=== PATIENT | male | born 1950 | race Caucasian/White ===

== ENCOUNTER → 2016-06-30 | Outpatient (CLI) | payer MEDICARE ==
[2015-04-21 17:30] VITALS: BP 123/69
[~2016-06-30] MED LIST: ALBU2.5V14 NEB; CONTRAST GIVEN MC PRN; FLUT1DIS3 IH; IOHEXOL 240 MG/ML 50ML VIAL. IV ONE; IOHEXOL 300 MG/ML 75 ML VIAL IV ONE; PROAIR HFA8.5 GM IH
[2016-06-30 09:09] LABS: CREATININE 0.8 mg/dL (0.7-1.3)
--- NOTE | 2016-06-30 10:47 | RAD ---
Indication abdominal pain and bloating. Duration 2 months. Axial images through the abdomen and pelvis were obtained. Both oral and IV contrast were administered. 75 cc of Omnipaque 300 was administered intravenously. No prior imaging of the abdomen or pelvis is available. Imaging of the lung bases demonstrates moderately extensive pleural calcification suggesting prior asbestos exposure. There is some parenchymal scarring at the lung bases. Acute finding at either lung base is not seen. There is a 2 to 3 mm parenchymal nodule in the right lower lobe, image 10 series 2. Follow-up imaging along the lines of the Fleischner criteria should be considered. The liver and spleen appear unremarkable and the gallbladder appears grossly normal. No pancreatic abnormality is seen. No adrenal or renal anomalies are seen. An acute finding in the abdomen is not apparent. In the pelvis no focal mass or inflammatory process is seen. No acute finding is apparent. Postoperative changes are noted. There are some degenerative changes in the lumbar spine predominantly centered at L5-S1 IMPRESSION: No acute finding seen in the abdomen or pelvis. Moderately extensive pleural calcification suggesting prior asbestos exposure. 3 mm pulmonary nodule right lower lobe. Follow-up imaging along the lines of the Fleischner criteria should be considered. Nodules detected incidentally at non-screening CT Nodule size (mm) less than or equal to 4 Low Risk patients- no follow-up needed High Risk patients- follow-up at 12 months and if no change, no further imaging needed. Nodule size > 4-6 mm Low risk patients- follow- up at 12 months and if no change, no further imaging needed High risk patients- initial follow-up CT at 6-12 months and then at 18-24 months if no change. Nodule Size > 6-8 mm Low risk patients- initial follow-up CT at 6-12 months and then at 18-24 months if no change. High risk patients- initial follow- up CT at 3-6 months and then at 9-12 months if no change, Nodule Size >8 mm Either low or high risk patients: Follow-up CT at around 3, 9 and 24 months Dynamic contrast [address], PET, and/or biopsy Note: newly detected indeterminate nodule in person 35 years of age or older. Low risk patients- minimal or absent history of smoking and/or other known risk factors. High risk patients- history of smoking or of other known risk factors. PQRS Compliance Statement: One or more of the following individualized dose reduction techniques were utilized for this examination: 1. Automated exposure control 2. Adjustment of the mA and/or kV according to patient size 3. Use of iterative reconstruction technique
== END | disposition home or self-care (01) ==
LOC: CT 08:43
PROVIDERS: ATTEND Physician Assistant
DX: R10.9 Unspecified abdominal pain (principal); R14.0 Abdominal distension (gaseous)
CPT/HCPCS: 36415; 74177; 82565; Q9966; Q9967

== ENCOUNTER → 2016-07-22 | Day surgery (SDC) | payer MEDICARE ==
[~2016-07-22] MED LIST changes: -CONTRAST GIVEN MC PRN; -IOHEXOL 240 MG/ML 50ML VIAL. IV ONE; -IOHEXOL 300 MG/ML 75 ML VIAL IV ONE; +IV RINGERS,LACTATED 1000ML 1,000 ML IV SCH; +ONDA4TAB10 SL; +PROPOFOL 20 ML IV ONE
[2016-07-22 08:13] VITALS: BP 169/86
--- NOTE | 2016-07-23 11:17 | PATHOLOGY ---
PATHOLOGY REPORT * * * * * * * * FINAL DIAGNOSIS: Colon biopsy, sigmoid polyp: - Tubular adenoma. COMMENT: There is no high-grade dysplasia or evidence of malignancy. (ANGELM:; d/t: 07/23/16) REPORT ELECTRONICALLY SIGNED BY: Jimmy Obrien M.D. DATE/TIME: 07/23/2016 11:16 * * * * * * * * GROSS PATHOLOGY: Received in formalin labeled "Pipe Santacruz, sigmoid polyp," is a segment of christianson soft tissue measuring 0.4 cm in maximum dimension. The specimen is submitted entirely in cassette A1. (MLG; 07/22/16) INITIAL CPT CODE(S): A; 50652 Professional services performed [place] [facility] [place] [address] Technical services performed by [facility] at [address] [place] [address], [facility] [address] [address]. SPECIMEN(S) RECEIVED: A.Sigmoid polyp CLINICAL HISTORY: Abdominal fullness PATIENT: PIPE SANTACRUZ /AGE: 8 1950 (Age: 65) PATIENT #: [id number] ALT CASE #: SPECIMEN COLLECTION DATE: 07/22/2016 SPECIMEN RECEIVED DATE: 07/22/2016 [facility] - [address] [place] [address] - PHONE: [phone] * * * END OF REPORT * * *
== END | disposition home or self-care (01) ==
LOC: ENDOS 06:53
PROVIDERS: ATTEND Internal Medicine Gastroenterology
DX: Z12.11 Encounter for screening for malignant neoplasm of colon (principal); D12.5 Benign neoplasm of sigmoid colon; K64.0 First degree hemorrhoids; K29.50 Unspecified chronic gastritis without bleeding; M19.90 Unspecified osteoarthritis, unspecified site; J44.9 Chronic obstructive pulmonary disease, unspecified; I10 Essential (primary) hypertension; K44.9 Diaphragmatic hernia without obstruction or gangrene; K21.9 Gastro-esophageal reflux disease without esophagitis; Z72.89 Other problems related to lifestyle; F17.210 Nicotine dependence, cigarettes, uncomplicated; Z86.69 Personal history of other diseases of the nervous system and sense organs; F41.9 Anxiety disorder, unspecified; Z88.3 Allergy status to other anti-infective agents
CPT/HCPCS: 43235; 45385; 88305; J2704

== ENCOUNTER → 2016-07-23 | Outpatient (CLI) | payer MEDICARE ==
[2015-04-21 17:30] VITALS: BP 123/69
[~2016-07-23] MED LIST changes: +IOHEXOL 300 MG/ML 75 ML VIAL IV ONE; -IV RINGERS,LACTATED 1000ML 1,000 ML IV SCH; -PROPOFOL 20 ML IV ONE
--- NOTE | 2016-07-23 09:50 | RAD ---
CT of the chest with contrast, 07/23/2016: History: Pulmonary nodules Multidetector CT imaging was performed following an IV bolus injection of iodinated contrast material. Multiplanar reconstructions were produced. No previous chest CT is available for comparison purposes. There are moderate emphysematous changes in the lungs. There are scattered linear opacities compatible with scars. There are pleural/parenchymal opacities in the apices, most prominent on the right. There is mild associated traction bronchiectasis in the right apex. These findings also suggests scarring. There is a calcified granuloma in the right middle lobe. A tiny nodular opacity seen in the right base and the 06/30/2016 study is no longer visible. No pulmonary mass is evident. There are scattered calcific pleural plaques bilaterally. The appearance suggests previous asbestos exposure. No pleural fluid is evident. There is moderate calcific plaquing of the thoracic aorta without evidence of aneurysm. Minimal coronary artery calcifications are noted. There are calcified mediastinal and hilar lymph nodes compatible with old granulomatous disease. No mediastinal or hilar adenopathy is evident. IMPRESSION: 1. Emphysema with scattered bilateral pleural-parenchymal opacities, most prominent in the pulmonary apices, compatible with scarring. CT follow-up is suggested to establish stability. 2. 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 3. Old healed granulomatous disease in the chest. 4. Aortic atherosclerosis with minimal coronary artery calcifications. PQRS Compliance Statement: One or more of the following individualized dose reduction techniques were utilized for this examination: 1. Automated exposure control 2. Adjustment of the mA and/or kV according to patient size 3. Use of iterative reconstruction technique
== END | disposition home or self-care (01) ==
LOC: CT 08:32
PROVIDERS: ATTEND Family Medicine
DX: J43.9 Emphysema, unspecified (principal); I70.0 Atherosclerosis of aorta; Z77.090 Contact with and (suspected) exposure to asbestos
CPT/HCPCS: 71260; Q9967

== ENCOUNTER → 2016-08-12 | Day surgery (SDC) | payer MEDICARE ==
[~2016-08-12] MED LIST changes: +ALBUTEROL SULFATE 2.5 MG/3 ML NEBU. IH ONE; +ALBUTEROL SULFATE 2.5 MG/3 ML NEBU. NEB ONE; +ALBUTEROL SULFATE 2.5 MG/3 ML NEBU. ONE; +HYDROmorphone 2 MG/ML VIAL IV PRN; -IOHEXOL 300 MG/ML 75 ML VIAL IV ONE; +IV RINGERS,LACTATED 1000ML 1,000 ML IV SCH; +LIDOCAINE 1% 1 ML SYRINGE. ID PRN; +MORPHINE SULFATE 2 MG/ML DISP.SYRIN. IV PRN; +ONDANSETRON PF 4 MG/2 ML VIAL. IV PRN; +PROCHLORPERAZINE 10 MG/2 ML VIAL. IV PRN; +PROPOFOL 20 ML IV ONE; +fentaNYL PF VIAL 100 MCG/2 ML VIAL IV PRN
[2016-08-12 14:46] VITALS: BP 139/87
--- NOTE | 2016-08-13 15:59 | PATHOLOGY ---
CYTOPATHOLOGY REPORT CLINICAL HISTORY: Chronic cough. SPECIMEN(S) RECEIVED: A.Bronchoalveolar lavage, RUL B.Bronchoalveolar lavage, NICHOLAS FINAL DIAGNOSIS: A. Right upper lobe bronchoalveolar lavage, ThinPrep: - No malignant cells identified. - Focally reactive bronchial epithelial cells and few squamous epithelial cells and pulmonary macrophages identified within a background of marked acute inflammation. B. Left upper lobe bronchoalveolar lavage, ThinPrep: - No malignant cells identified. - Focally reactive bronchial epithelial cells, squamous epithelial cells, and pulmonary macrophages identified within a background of marked acute inflammation. (JPM:mgr; 08/13/2016) PATHOLOGIST: Jimmy Obrien M.D. REPORT ELECTRONICALLY SIGNED BY: Jimmy Obrien M.D. DATE/TIME: 08/13/2016 15:58 GROSS PATHOLOGY: A. Bronchoalveolar lavage, RUL: The specimen is submitted unfixed, labeled "Pipe Santacruz". Received by the Cytology Department is 5 mL of cloudy white fluid. One ThinPrep slide was prepared. B. Bronchoalveolar lavage, NICHOLAS: The specimen is submitted unfixed, labeled "Pipe Santacruz". Received by the Cytology Department is 5 mL of cloudy light pink fluid. One ThinPrep slide was prepared. (clt 08.12.2016) PROPERTY OFFICER(S): BROCK Yuan([facility]) INITIAL CPT CODE(S): A; 15338 B; 95192 Professional services performed [place] [place] [address] Technical services performed by [facility] at [address] [place] [address], [facility] [address] [address]. PATIENT: PIPE SANTACRUZ /AGE: 8 1950 (Age: 65) SEX: M PATIENT #: [id number] ALT CASE #: SPECIMEN COLLECTION DATE: 08/12/2016 SPECIMEN RECEIVED DATE: 08/12/[address] [facility] [address] [place] [address], [address] [place] [address] PHONE: [phone] DIRECTOR: Dain Cannon M.D. * * * END OF REPORT * * *
--- NOTE | 2016-08-31 13:36 | PDOC4 ---
PROCEDURE Procedure [id number] LEANNA SIDDIQUI MD Aug 31, 2016 13:36
--- NOTE | 2016-08-31 18:29 | OP ---
DATE OF SURGERY: 08/12/2016 ATTENDING PHYSICIAN: Hamzah Adamson M.D. PROCEDURES: Bronchoscopy, bronchoalveolar lavage of left upper lobe and right upper lobe. INDICATIONS: The patient presented with abnormal CT of the chest revealing bilateral infiltrates along with chronic cough. Risks, benefits, and alternatives reviewed with patient. He consented. DESCRIPTION OF PROCEDURE: Timeout was performed prior to the procedure. Vital signs and O2 saturation were maintained within normal limits throughout the procedure. The bronchoscope was passed through the right naris. The vocal cords were identified moving bilaterally without any dysfunction. Vocal cords were then anesthetized with a total of 5 mL of 4% lidocaine. The bronchoscope was passed through the vocal cords into the proximal trachea, which was normal. The distal trachea was likewise normal. The right and left segments and the subsegments were all visualized. There were no endobronchial lesions. The scope was wedged into the right upper lobe segments. A bronchoalveolar lavage was performed. The scope was then wedged into the left upper lobe subsegment and a bronchoalveolar lavage was likewise performed. FINDINGS: 1. No endobronchial lesion. 2. Normal vocal cords. PLAN: We will await the BAL results. The patient tolerated the procedure well with no immediate complications. LEANNA SIDDIQUI MD DR: BLAYNE/jose francisco JOB#: [id number] / [id number]
== END | disposition home or self-care (01) ==
LOC: SURG 12:44
PROVIDERS: ATTEND Internal Medicine Pulmonary Disease
DX: R91.8 Other nonspecific abnormal finding of lung field (principal); J44.9 Chronic obstructive pulmonary disease, unspecified; I10 Essential (primary) hypertension; M19.90 Unspecified osteoarthritis, unspecified site; F17.200 Nicotine dependence, unspecified, uncomplicated; Z86.69 Personal history of other diseases of the nervous system and sense organs; Z87.39 Personal history of other diseases of the musculoskeletal system and connective tissue; Z91.041 Radiographic dye allergy status
CPT/HCPCS: 31624; 87070; 87102; 87116; 87205; 88112; 94640; J2704; J7613; 31622

== ENCOUNTER → 2016-08-13 | Outpatient (CLI) | payer MEDICARE ==
[2016-08-12 14:46] VITALS: BP 139/87
[~2016-08-13] MED LIST changes: -ALBUTEROL SULFATE 2.5 MG/3 ML NEBU. IH ONE; -ALBUTEROL SULFATE 2.5 MG/3 ML NEBU. NEB ONE; -ALBUTEROL SULFATE 2.5 MG/3 ML NEBU. ONE; -HYDROmorphone 2 MG/ML VIAL IV PRN; -IV RINGERS,LACTATED 1000ML 1,000 ML IV SCH; -LIDOCAINE 1% 1 ML SYRINGE. ID PRN; -MORPHINE SULFATE 2 MG/ML DISP.SYRIN. IV PRN; -ONDANSETRON PF 4 MG/2 ML VIAL. IV PRN; -PROCHLORPERAZINE 10 MG/2 ML VIAL. IV PRN; -PROPOFOL 20 ML IV ONE; -fentaNYL PF VIAL 100 MCG/2 ML VIAL IV PRN
--- NOTE | 2016-08-17 13:08 | PDOC4 ---
PROCEDURE Procedure Mr. Santacruz underwent full PFTs at [facility] on 08/13/16. patients FVC was 2.8 which is 63% predicted. Patient's FEV1 was 0.90 which is 26% predicted. Patient's FEV1 FEC ratio is severely reduced. There was mild response to bronchodilators with 12% improvement in FVC and 11% improvement in FEV1. Patient's lung volumes showed a total lung capacity of 166% predicted and residual volume of 346% predicted. Patient's diffusion capacity was 54% predicted impression 1. Severe obstructive airway disease 2. Good response to bronchodilators. 3. Lung volumes consistent with air trapping and hyperinflation. 4. Moderately reduced diffusion capacity. JESSE NIXON MD Aug 17, 2016 13:08
== END | disposition home or self-care (01) ==
LOC: PF 10:43
PROVIDERS: ATTEND Internal Medicine Pulmonary Disease
DX: R05 Cough (principal)
CPT/HCPCS: 94060; 94729

== ENCOUNTER 2016-08-25 00:48 | Inpatient (IN) | payer MEDICARE ==
[~2016-08-25] VITALS: Ht 180.3 cm; Wt 66.7 kg
[2016-08-25 01:11] LABS: BASO # 0.1 x10^3/uL (0.0-0.2); BASO % 1 % (0-3); EOS % 5 % (0-3); HEMATOCRIT 43.1 % (39.0-53.0); HEMOGLOBIN 14.5 g/dL (13.0-17.5); LYMPH # 1.4 x10^3/uL (1.0-4.8); LYMPH % 18 % (24-48); MEAN CORPUSCULAR HEMOGLOBIN 31 pg (25-35); MEAN CORPUSCULAR HGB CONC 34 g/dL (31-37); MEAN CORPUSCULAR VOLUME 92 fL (79-100); MONO % 8 % (0-9); NEUT % 69 % (31-73); PLATELET COUNT 223 x10^3/uL (140-400); RED BLOOD COUNT 4.69 x10^6/uL (4.30-5.70); RED CELL DISTRIBUTION WIDTH 14.2 % (11.5-14.5)
[2016-08-25] MEDS ORDERED: IPRATROPIUM BROMIDE 0.5 MG/2.5 ML NEBU. NEB ONE (01:15)
[2016-08-25] MEDS ORDERED: ALBUTEROL SULFATE 2.5 MG/3 ML NEBU. CONT NEB ONE (01:15)
[2016-08-25] MEDS ORDERED: methylPREDNISolone SOD SUCC PF 125 MG/2 ML VIAL. IV ONE (01:15)
--- NOTE | 2016-08-25 01:23 | ED.ADGEN ---
Past Medical History Past Medical History: COPD, High Cholesterol, Other Additional Past Medical Histor: bowel obstruction Past Surgical History: Colectomy Alcohol Use: Heavy Additional Information: drinks 3 x beers daily per pt Drug Use: None Adult General Chief Complaint Chief Complaint: SHORTNESS OF BREATH HPI HPI Patient is a 65 year old man, history of COPD, for which he uses nebulizer treatments, started on antibiotics from his primary care provider 2 days ago for a cough productive green sputum, who presents to the emergency department respiratory failure. Patient states he used 3 neb treatments in a half an hour home without any improvement in the shortness of breath, vomiting he and his come to the ED for additional evaluation. Patient denies any chest pain, any nausea or vomiting, any fevers or chills. He states that he does not use oxygen at home, oxygen saturation upon arrival to the emergency department is 83 % on room air. Patient placed on nasal cannula at 4 L, oxygen saturation is now in the mid 90s. Denies any swelling extremities, any history of congestive heart failure heart issues, no recent travel or surgery, history of DVT or PE. States he has been compliant with all medications. His primary care provider is Dr. Adamson. Review of Systems Review of Systems Constitutional: Denies fever or chills. [] Eyes: Denies change in visual acuity. [] HENT: Denies nasal congestion or sore throat. [] Respiratory: Off productive of green sputum, worsening shortness of breath over the past several days.] Cardiovascular: Denies chest pain or edema. [] GI: Denies abdominal pain, nausea, vomiting, bloody stools or diarrhea. [] : Denies dysuria. [] Musculoskeletal: Denies back pain or joint pain. [] Integument: Denies rash. [] Neurologic: Denies headache, focal weakness or sensory changes. [] Endocrine: Denies polyuria or polydipsia. [] Lymphatic: Denies swollen glands. [] Psychiatric: Denies depression or anxiety. [] Current Medications Current Medications Current Medications Medications (Trade) Dose Ordered Sig/Terri Start Time Stop Time Status Last Admin Dose Admin Albuterol Sulfate (Ventolin Neb Soln) 10 mg 1X ONCE 08/25/16 01:15 08/25/16 01:16 DC Ipratropium Agate (Atrovent) 1.5 mg 1X ONCE 7/18/17 01:15 08/25/16 01:16 DC Methylprednisolone Sodium Succinate (SOLU-Medrol 125MG VIAL) 125 mg 1X ONCE 08/25/16 01:15 08/25/16 01:16 DC 08/25/16 01:51 125 MG Allergies Allergies Allergies Coded Allergies Type Severity Reaction Last Updated Verified povidone-iodine Allergy Intermediate 08/12/16 Yes Physical Exam Physical Exam Constitutional: Well developed, well nourished, moderate respiratory distress, ill in appearance. [] HENT: Normocephalic, atraumatic, bilateral external ears normal, oropharynx moist, no oral exudates, nose normal. [] Eyes: PERRLA, EOMI, conjunctiva normal, no discharge. [] Neck: Normal range of motion, no tenderness, supple, no stridor. [] Cardiovascular:Heart rate regular rhythm, no murmur, S1, S2, no rubs or gallops. [] Lungs & Thorax: Patient with coarse wheezing noted throughout all lung rehman. No chest wall crepitus or tenderness. [] Abdomen: Bowel sounds normal, soft, no tenderness, no rebound, rigidity, no guarding, no masses, no pulsatile masses. [] Skin: Warm, dry, no erythema, no rash. [] Back: No tenderness, no CVA tenderness. [] Extremities: No tenderness, no cyanosis, no clubbing, ROM intact, no edema. Negative Homans sign. [] Neurologic: Alert and oriented X 3, normal motor function, normal sensory function, no focal deficits noted. [] Psychologic: Affect normal, judgement normal, mood normal. [] Current Patient Data Vital Signs Vital Signs Date Time Temp Pulse Resp B/P (MAP) Pulse Ox O2 Delivery O2 Flow Rate FiO2 08/25/16 01:20 96 Nasal Cannula 4.0 08/25/16 00:50 97.8 124 28 156/106 (123) 97.8 Lab Values Laboratory Tests Test 08/25/16 01:01 White Blood Count 8.0 x10^3/uL (4.0-11.0) Red Blood Count 4.69 x10^6/uL (4.30-5.70) Hemoglobin 14.5 g/dL (13.0-17.5) Hematocrit 43.1 % (39.0-53.0) Mean Corpuscular Volume 92 fL (79-100) Mean Corpuscular Hemoglobin 31 pg (25-35) Mean Corpuscular Hemoglobin Concent 34 g/dL (31-37) Red Cell Distribution Width 14.2 % (11.5-14.5) Platelet Count 223 x10^3/uL (140-400) Neutrophils (%) (Auto) 69 % (31-73) Lymphocytes (%) (Auto) 18 % (24-48) L Monocytes (%) (Auto) 8 % (0-9) Eosinophils (%) (Auto) 5 % (0-3) H Basophils (%) (Auto) 1 % (0-3) Neutrophils # (Auto) 5.5 x10^3uL (1.8-7.7) Lymphocytes # (Auto) 1.4 x10^3/uL (1.0-4.8) Monocytes # (Auto) 0.6 x10^3/uL (0.0-1.1) Eosinophils # (Auto) 0.4 x10^3/uL (0.0-0.7) Basophils # (Auto) 0.1 x10^3/uL (0.0-0.2) Sodium Level 137 mmol/L (136-145) Potassium Level 4.8 mmol/L (3.5-5.1) Chloride Level 100 mmol/L (98-107) Carbon Dioxide Level 31 mmol/L (21-32) Anion Gap 6 (6-14) Blood Urea Nitrogen 16 mg/dL (8-26) Creatinine 1.0 mg/dL (0.7-1.3) Estimated GFR (Cockcroft-Gault) 75.0 BUN/Creatinine Ratio 16 (6-20) Glucose Level 105 mg/dL (70-99) H Calcium Level 9.3 mg/dL (8.5-10.1) Total Bilirubin 0.2 mg/dL (0.2-1.0) Aspartate Amino Transferase (AST) 20 U/L (15-37) Alanine Aminotransferase (ALT) 19 U/L (16-63) Alkaline Phosphatase 83 U/L (46-116) Troponin I Quantitative < 0.017 ng/mL (0.000-0.055) NA-Bql-C-Type Natriuretic Peptide 132 pg/mL (0-124) H Total Protein 7.6 g/dL (6.4-8.2) Albumin 3.5 g/dL (3.4-5.0) Albumin/Globulin Ratio 0.9 (1.0-1.7) L Laboratory Tests 08/25/16 01:01 Laboratory Tests 08/25/16 01:01 EKG EKG EC: Sinus tachycardia, heart rate 115 beats minute, upright axis, QTC of 428, MI 166, QRS of 78, patient with left axis deviation, evidence of left ventricular hypertrophy, with contour normality is noted in the lateral leads, no ST depressions noted, 1 mm of elevation in V3 and V4, abnormal ECG, does not meet STEMI criteria. As interpreted by me. Radiology/Procedures Radiology/Procedures Chest x-ray: One view: Patient with hyperinflation of lungs, and flattening of diaphragms bilaterally, scarring noted bilaterally, no obvious infiltrate or effusion identified, no pneumothorax. Abnormal chest x-ray, no acute finding identified. As interpreted by me. [] Course & Med Decision Making Course & Med Decision Making Pertinent Labs and Imaging studies reviewed. (See chart for details) Patient's examination and history is consistent with a COPD flare, patient Elias evidence of infectious source on x-ray laboratory studies. Patient received an hour-long treatment nebulizer in the ED, with improvement of his respiratory status, oxygen saturation is now maintained in the mid 90s on 3-4 L nasal cannula. Patient states he is feeling better, is agreeable for admission to hospital for continued management, IV steroids also administered. Findings as above discussed with Dr. Adamson, his primary care provider. Patient without any concerning laboratory findings, negative troponin, patient accepted his service as a full admission to the medical telemetry floor, with continued respiratory support, respiratory treatments, IV steroids, and consultation with pulmonary critical care. Patient remained comfortable, stable on the little oxygen, transferred without issue. Bridge orders entered per discussion. Dragon Disclaimer Dragon Disclaimer This electronic medical record was generated, in whole or in part, using a voice recognition dictation system. Departure Impression: Primary Impression: COPD exacerbation Additional Impression: Respiratory failure Disposition: ADMITTED INPATIENT Admitting Physician: Hamzah Adamson Condition: IMPROVED Problem Qualifiers DAMION GUTIERREZ DO Aug 25, 2016 01:23
[2016-08-25 01:30] LABS: CALCIUM 9.3 mg/dL (8.5-10.1); POTASSIUM 4.8 mmol/L (3.5-5.1)
[2016-08-25 01:37] LABS: ALBUMIN 3.5 g/dL (3.4-5.0); ALBUMIN/GLOBULIN RATIO 0.9 (1.0-1.7); TOTAL BILIRUBIN 0.2 mg/dL (0.2-1.0); TOTAL PROTEIN 7.6 g/dL (6.4-8.2)
[2016-08-25 02:41] LABS: BILIRUBIN,URINE NEGATIVE (NEG); GLUCOSE,URINE NEGATIVE (NEG); NITRITE,URINE NEGATIVE (NEG); PH,URINE 6.5; PROTEIN,URINE NEGATIVE (NEG-TRACE); UROBILINOGEN,URINE 0.2 mg/dL (0.2 mg/dL)
[2016-08-25 02:49] LABS: BACTERIA,URINE 0 /HPF (0-FEW); RBC,URINE 0 /HPF (0-2); SQUAMOUS EPITHELIAL CELL,UR OCC /LPF; WBC,URINE OCC /HPF (0-4)
[2016-08-25] MEDS ORDERED: ONDANSETRON PF 4 MG/2 ML VIAL. IV PRN (04:00)
[2016-08-25] MEDS ORDERED: MORPHINE SULFATE 2 MG/ML DISP.SYRIN. IV PRN (04:00)
[2016-08-25] MEDS ORDERED: NITROGLYCERIN SUBLINGUAL 0.4 MG BOTTLE OF 25. SL PRN (04:00)
[2016-08-25 05:20] VITALS: BP 159/94
[2016-08-25 07:00] VITALS: BP 169/85
--- NOTE | 2016-08-25 07:01 | EKG ---
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
[2016-08-25] MEDS: IPRATRPIUM/ALBUTEROL 0.5/2.5MG 3 ML NEBU. NEB SCH ×4 (07:16→19:36)
--- NOTE | 2016-08-25 08:06 | RAD ---
Indication shortness of breath. Hypoxia. A single view of the chest was obtained and is compared to an exam 04/21/2015. Note is made of a CT examination of the chest 07/23/2016. Scarring at the right lung apex is noted similar to the previous exam. Pleural-parenchymal scarring at the right lung base laterally is noted also similar. Calcified left hilar lymph nodes are noted. The heart and pulmonary vessels are within normal limits. An acute finding or significant change compared to the previous exam is not seen. IMPRESSION: Chronic changes. No acute finding. No significant change
[2016-08-25] MEDS: methylPREDNISolone SOD SUCC PF 40 MG/ML VIAL. IV SCH ×2 (08:20→21:25)
--- NOTE | 2016-08-25 08:34 | PDOC1 ---
History and Physical Date of Admission Date of Admission DATE: 08/25/16 TIME: 02:00 Identification/Chief Complaint Chief Complaint sob and productive cough Problems: History of Present Illness History of Present Illness 2 months of cough, increased sob, and worse to point on evening prior to admission where 3 breathing treatments back to back did not help. has had recent workup as outpatient by pulmonology. Current Problem List Problem List Problems Medical Problems: (1) Respiratory failure Status: Acute Problems: Current Medications Current Medications Current Medications Albuterol Sulfate (Ventolin Neb Soln) 10 mg 1X ONCE CONT NEB ; Start 08/25/16 at 01:15; Stop 08/25/16 at 01:16; Status DC Ipratropium [place] (Atrovent) 1.5 mg 1X ONCE NEB ; Start 08/25/16 at 01:15; Stop 08/25/16 at 01:16; Status DC Methylprednisolone Sodium Succinate (SOLU-Medrol 125MG VIAL) 125 mg 1X ONCE IV Last administered on 08/25/16 01:51; Start 08/25/16 at 01:15; Stop 08/25/16 at 01:16; Status DC Ondansetron HCl (Zofran) 4 mg PRN Q8HRS PRN IV NAUSEA/VOMITING; Start 08/25/16 at 04:00; Stop 08/26/16 at 03:59 Morphine Sulfate 2 mg PRN Q2HR PRN IV PAIN; Start 08/25/16 at 04:00; Stop 08/26 at 03:59 Nitroglycerin (Nitrostat) 0.4 mg PRN Q5MIN PRN SL CHEST PAIN; Start 08/25/16 at 04:00; Stop 08/26/16 at 03:59 Albuterol/ Ipratropium (Duoneb) 3 ml RTQID NEB Last administered on 08/25/16 07:16; Start 08/25/16 at 08:00; Stop 08/26/16 at 07:59 Methylprednisolone Sodium Succinate (SOLU-Medrol 40MG VIAL) 40 mg Q12HR IV Last administered on 08/25/16 08:20; Start 08/25/16 at 09:00 Active Scripts Active Reported Zofran Odt (Ondansetron) 4 Mg Tab.rapdis 1 Tab SL Q8HRS Proair Hfa Inhaler (Albuterol Sulfate) 8.5 Gm Hfa.aer.ad 2 Puff IH PRN Q4-6HRS PRN Albuterol Sulfate Conc Neb Soln (Albuterol Sulfate) 2.5 Mg/0.5 Ml Vial.neb 1 Vial NEB Q6HRS PRN Allergies Allergies: Coded Allergies: povidone-iodine (Verified Allergy, Intermediate, 08/12/16) Vitals Vitals Vital Signs Date Time Temp Pulse Resp B/P (MAP) Pulse Ox O2 Delivery O2 Flow Rate FiO2 08/25/16 07:18 93 Nasal Cannula 4.0 08/25/16 07:00 98.2 109 22 169/85 (113) 98.2 Labs Labs Laboratory Tests Test 08/25/16 01:01 08/25/16 02:30 08/25/16 06:50 White Blood Count 8.0 x10^3/uL (4.0-11.0) Red Blood Count 4.69 x10^6/uL (4.30-5.70) Hemoglobin 14.5 g/dL (13.0-17.5) Hematocrit 43.1 % (39.0-53.0) Mean Corpuscular Volume 92 fL (79-100) Mean Corpuscular Hemoglobin 31 pg (25-35) Mean Corpuscular Hemoglobin Concent 34 g/dL (31-37) Red Cell Distribution Width 14.2 % (11.5-14.5) Platelet Count 223 x10^3/uL (140-400) Neutrophils (%) (Auto) 69 % (31-73) Lymphocytes (%) (Auto) 18 % (24-48) Monocytes (%) (Auto) 8 % (0-9) Eosinophils (%) (Auto) 5 % (0-3) Basophils (%) (Auto) 1 % (0-3) Neutrophils # (Auto) 5.5 x10^3uL (1.8-7.7) Lymphocytes # (Auto) 1.4 x10^3/uL (1.0-4.8) Monocytes # (Auto) 0.6 x10^3/uL (0.0-1.1) Eosinophils # (Auto) 0.4 x10^3/uL (0.0-0.7) Basophils # (Auto) 0.1 x10^3/uL (0.0-0.2) Sodium Level 137 mmol/L (136-145) Potassium Level 4.8 mmol/L (3.5-5.1) Chloride Level 100 mmol/L (98-107) Carbon Dioxide Level 31 mmol/L (21-32) Anion Gap 6 (6-14) Blood Urea Nitrogen 16 mg/dL (8-26) Creatinine 1.0 mg/dL (0.7-1.3) Estimated GFR (Cockcroft-Gault) 75.0 BUN/Creatinine Ratio 16 (6-20) Glucose Level 105 mg/dL (70-99) Calcium Level 9.3 mg/dL (8.5-10.1) Total Bilirubin 0.2 mg/dL (0.2-1.0) Aspartate Amino Transf (AST/SGOT) 20 U/L (15-37) Alanine Aminotransferase (ALT/SGPT) 19 U/L (16-63) Alkaline Phosphatase 83 U/L (46-116) Troponin I Quantitative < 0.017 ng/mL (0.000-0.055) DF-Aqv-S-Type Natriuretic Peptide 132 pg/mL (0-124) Total Protein 7.6 g/dL (6.4-8.2) Albumin 3.5 g/dL (3.4-5.0) Albumin/Globulin Ratio 0.9 (1.0-1.7) Urine Collection Type Unknown Urine Color Yellow Urine Clarity Cloudy Urine pH 6.5 Urine Specific Nora 1.010 Urine Protein Negative mg/dL (NEG-TRACE) Urine Glucose (UA) Negative mg/dL (NEG) Urine Ketones (Stick) Negative mg/dL (NEG) Urine Blood Negative (NEG) Urine Nitrite Negative (NEG) Urine Bilirubin Negative (NEG) Urine Urobilinogen Dipstick 0.2 mg/dL (0.2 mg/dL) Urine Leukocyte Esterase Negative (NEG) Urine RBC 0 /HPF (0-2) Urine WBC Occ /HPF (0-4) Urine Squamous Epithelial Cells Occ /LPF Urine Bacteria 0 /HPF (0-FEW) Glucose (Fingerstick) 153 mg/dL (70-99) Laboratory Tests Test 08/25/16 01:01 08/25/16 02:30 08/25/16 06:50 White Blood Count 8.0 x10^3/uL (4.0-11.0) Red Blood Count 4.69 x10^6/uL (4.30-5.70) Hemoglobin 14.5 g/dL (13.0-17.5) Hematocrit 43.1 % (39.0-53.0) Mean Corpuscular Volume 92 fL (79-100) Mean Corpuscular Hemoglobin 31 pg (25-35) Mean Corpuscular Hemoglobin Concent 34 g/dL (31-37) Red Cell Distribution Width 14.2 % (11.5-14.5) Platelet Count 223 x10^3/uL (140-400) Neutrophils (%) (Auto) 69 % (31-73) Lymphocytes (%) (Auto) 18 % (24-48) Monocytes (%) (Auto) 8 % (0-9) Eosinophils (%) (Auto) 5 % (0-3) Basophils (%) (Auto) 1 % (0-3) Neutrophils # (Auto) 5.5 x10^3uL (1.8-7.7) Lymphocytes # (Auto) 1.4 x10^3/uL (1.0-4.8) Monocytes # (Auto) 0.6 x10^3/uL (0.0-1.1) Eosinophils # (Auto) 0.4 x10^3/uL (0.0-0.7) Basophils # (Auto) 0.1 x10^3/uL (0.0-0.2) Sodium Level 137 mmol/L (136-145) Potassium Level 4.8 mmol/L (3.5-5.1) Chloride Level 100 mmol/L (98-107) Carbon Dioxide Level 31 mmol/L (21-32) Anion Gap 6 (6-14) Blood Urea Nitrogen 16 mg/dL (8-26) Creatinine 1.0 mg/dL (0.7-1.3) Estimated GFR (Cockcroft-Gault) 75.0 BUN/Creatinine Ratio 16 (6-20) Glucose Level 105 mg/dL (70-99) Calcium Level 9.3 mg/dL (8.5-10.1) Total Bilirubin 0.2 mg/dL (0.2-1.0) Aspartate Amino Transf (AST/SGOT) 20 U/L (15-37) Alanine Aminotransferase (ALT/SGPT) 19 U/L (16-63) Alkaline Phosphatase 83 U/L (46-116) Troponin I Quantitative < 0.017 ng/mL (0.000-0.055) HT-Gjf-M-Type Natriuretic Peptide 132 pg/mL (0-124) Total Protein 7.6 g/dL (6.4-8.2) Albumin 3.5 g/dL (3.4-5.0) Albumin/Globulin Ratio 0.9 (1.0-1.7) Urine Collection Type Unknown Urine Color Yellow Urine Clarity Cloudy Urine pH 6.5 Urine Specific Nora 1.010 Urine Protein Negative mg/dL (NEG-TRACE) Urine Glucose (UA) Negative mg/dL (NEG) Urine Ketones (Stick) Negative mg/dL (NEG) Urine Blood Negative (NEG) Urine Nitrite Negative (NEG) Urine Bilirubin Negative (NEG) Urine Urobilinogen Dipstick 0.2 mg/dL (0.2 mg/dL) Urine Leukocyte Esterase Negative (NEG) Urine RBC 0 /HPF (0-2) Urine WBC Occ /HPF (0-4) Urine Squamous Epithelial Cells Occ /LPF Urine Bacteria 0 /HPF (0-FEW) Glucose (Fingerstick) 153 mg/dL (70-99) VTE Prophylaxis Ordered VTE Prophylaxis Devices: No VTE Pharmacological Prophylaxi: No Assessment/Plan Assessment/Plan pulmonary toilet, iv steroids, iv antibiotics, sputum culture, pulmonology consult, see orders. KISHAN OCHOA MD Aug 25, 2016 08:34
[2016-08-25] MEDS: AZITHROMYCIN 500 MG in IV NORMAL SALINE 250ML 250 ML IV SCH (09:36)
[2016-08-25] MEDS ORDERED: AZITHRMYCN 500MG IVPB FOR OMNI 250 ML IV SCH (10:00)
[2016-08-25 10:47] VITALS: BP 145/90
[2016-08-25 14:46] VITALS: BP 148/89
--- NOTE | 2016-08-25 18:20 | PDOC2 ---
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 INCREASED COUGH MOSTLY NON PRODUCTIVE PT CXR REVIEWED NO INFILTRATES DENIES F/C/N/V DENIES CHEST PAIN Past Medical History Pulmonary: COPD Social History 1 pack per day Current Problem List Problem List Problems Medical Problems: (1) Respiratory failure Status: Acute Current Medications Current Medications Current Medications Albuterol Sulfate (Ventolin Neb Soln) 10 mg 1X ONCE CONT NEB ; Start 08/25/16 at 01:15; Stop 08/25/16 at 01:16; Status DC Ipratropium [place] (Atrovent) 1.5 mg 1X ONCE NEB ; Start 08/25/16 at 01:15; Stop 08/25/16 at 01:16; Status DC Methylprednisolone Sodium Succinate (SOLU-Medrol 125MG VIAL) 125 mg 1X ONCE IV Last administered on 08/25/16 01:51; Start 08/25/16 at 01:15; Stop 08/25/16 at 01:16; Status DC Ondansetron HCl (Zofran) 4 mg PRN Q8HRS PRN IV NAUSEA/VOMITING; Start 08/25/16 at 04:00; Stop 08/26/16 at 03:59 Morphine Sulfate 2 mg PRN Q2HR PRN IV PAIN; Start 08/25/16 at 04:00; Stop 08/26 at 03:59 Nitroglycerin (Nitrostat) 0.4 mg PRN Q5MIN PRN SL CHEST PAIN; Start 08/25/16 at 04:00; Stop 08/26/16 at 03:59 Albuterol/ Ipratropium (Duoneb) 3 ml RTQID NEB Last administered on 08/25/16 15:25; Start 08/25/16 at 08:00; Stop 08/26/16 at 07:59 Methylprednisolone Sodium Succinate (SOLU-Medrol 40MG VIAL) 40 mg Q12HR IV Last administered on 08/25/16 08:20; Start 08/25/16 at 09:00 Ceftriaxone Sodium 1 gm/ Sodium Chloride 50 ml @ 100 mls/hr Q24H IV Last administered on 08/25/16 09:02; Start 08/25/16 at 09:00 Azithromycin 250 ml @ 250 mls/hr DAILY10 IV ; Start 08/25/16 at 10:00; Status UNV Azithromycin 500 mg/Sodium Chloride 250 ml @ 250 mls/hr DAILY10 IV Last administered on 08/25/16 09:36; Start 08/25/16 at 10:00 Active Scripts Active Reported Zofran Odt (Ondansetron) 4 Mg Tab.rapdis 1 Tab SL Q8HRS Proair Hfa Inhaler (Albuterol Sulfate) 8.5 Gm Hfa.aer.ad 2 Puff IH PRN Q4-6HRS PRN Albuterol Sulfate Conc Neb Soln (Albuterol Sulfate) 2.5 Mg/0.5 Ml Vial.neb 1 Vial NEB Q6HRS PRN Allergies Allergies: Coded Allergies: povidone-iodine (Verified Allergy, Intermediate, 08/12/16) ROS Review of System HPI OTHERWISE NEGATIVE Physical Exam Physical Exam NAD DISTRESS General: Alert, No acute distress HEENT: EOMI Lungs: Other (BILATERAL WHEEZE) Heart: Regular rate, Normal S1, Normal S2 Abdomen: Normal bowel sounds, Soft, No tenderness Extremities: No clubbing, No cyanosis Skin: No rashes, No breakdown Neuro: Normal speech Psych/Mental Status: Mental status NL Vitals VITALS Vital Signs Date Time Temp Pulse Resp B/P (MAP) Pulse Ox O2 Delivery O2 Flow Rate FiO2 08/25/16 15:26 Nasal Cannula 4.0 08/25/16 14:46 98.2 104 20 148/89 (108) 95 98.2 Labs Labs Laboratory Tests Test 08/25/16 01:01 08/25/16 02:30 08/25/16 06:50 White Blood Count 8.0 x10^3/uL (4.0-11.0) Red Blood Count 4.69 x10^6/uL (4.30-5.70) Hemoglobin 14.5 g/dL (13.0-17.5) Hematocrit 43.1 % (39.0-53.0) Mean Corpuscular Volume 92 fL (79-100) Mean Corpuscular Hemoglobin 31 pg (25-35) Mean Corpuscular Hemoglobin Concent 34 g/dL (31-37) Red Cell Distribution Width 14.2 % (11.5-14.5) Platelet Count 223 x10^3/uL (140-400) Neutrophils (%) (Auto) 69 % (31-73) Lymphocytes (%) (Auto) 18 % (24-48) Monocytes (%) (Auto) 8 % (0-9) Eosinophils (%) (Auto) 5 % (0-3) Basophils (%) (Auto) 1 % (0-3) Neutrophils # (Auto) 5.5 x10^3uL (1.8-7.7) Lymphocytes # (Auto) 1.4 x10^3/uL (1.0-4.8) Monocytes # (Auto) 0.6 x10^3/uL (0.0-1.1) Eosinophils # (Auto) 0.4 x10^3/uL (0.0-0.7) Basophils # (Auto) 0.1 x10^3/uL (0.0-0.2) Sodium Level 137 mmol/L (136-145) Potassium Level 4.8 mmol/L (3.5-5.1) Chloride Level 100 mmol/L (98-107) Carbon Dioxide Level 31 mmol/L (21-32) Anion Gap 6 (6-14) Blood Urea Nitrogen 16 mg/dL (8-26) Creatinine 1.0 mg/dL (0.7-1.3) Estimated GFR (Cockcroft-Gault) 75.0 BUN/Creatinine Ratio 16 (6-20) Glucose Level 105 mg/dL (70-99) Calcium Level 9.3 mg/dL (8.5-10.1) Total Bilirubin 0.2 mg/dL (0.2-1.0) Aspartate Amino Transf (AST/SGOT) 20 U/L (15-37) Alanine Aminotransferase (ALT/SGPT) 19 U/L (16-63) Alkaline Phosphatase 83 U/L (46-116) Troponin I Quantitative < 0.017 ng/mL (0.000-0.055) YN-Llx-J-Type Natriuretic Peptide 132 pg/mL (0-124) Total Protein 7.6 g/dL (6.4-8.2) Albumin 3.5 g/dL (3.4-5.0) Albumin/Globulin Ratio 0.9 (1.0-1.7) Urine Collection Type Unknown Urine Color Yellow Urine Clarity Cloudy Urine pH 6.5 Urine Specific [place] 1.010 Urine Protein Negative mg/dL (NEG-TRACE) Urine Glucose (UA) Negative mg/dL (NEG) Urine Ketones (Stick) Negative mg/dL (NEG) Urine Blood Negative (NEG) Urine Nitrite Negative (NEG) Urine Bilirubin Negative (NEG) Urine Urobilinogen Dipstick 0.2 mg/dL (0.2 mg/dL) Urine Leukocyte Esterase Negative (NEG) Urine RBC 0 /HPF (0-2) Urine WBC Occ /HPF (0-4) Urine Squamous Epithelial Cells Occ /LPF Urine Bacteria 0 /HPF (0-FEW) Glucose (Fingerstick) 153 mg/dL (70-99) Laboratory Tests Test 08/25/16 01:01 08/25/16 02:30 08/25/16 06:50 White Blood Count 8.0 x10^3/uL (4.0-11.0) Red Blood Count 4.69 x10^6/uL (4.30-5.70) Hemoglobin 14.5 g/dL (13.0-17.5) Hematocrit 43.1 % (39.0-53.0) Mean Corpuscular Volume 92 fL (79-100) Mean Corpuscular Hemoglobin 31 pg (25-35) Mean Corpuscular Hemoglobin Concent 34 g/dL (31-37) Red Cell Distribution Width 14.2 % (11.5-14.5) Platelet Count 223 x10^3/uL (140-400) Neutrophils (%) (Auto) 69 % (31-73) Lymphocytes (%) (Auto) 18 % (24-48) Monocytes (%) (Auto) 8 % (0-9) Eosinophils (%) (Auto) 5 % (0-3) Basophils (%) (Auto) 1 % (0-3) Neutrophils # (Auto) 5.5 x10^3uL (1.8-7.7) Lymphocytes # (Auto) 1.4 x10^3/uL (1.0-4.8) Monocytes # (Auto) 0.6 x10^3/uL (0.0-1.1) Eosinophils # (Auto) 0.4 x10^3/uL (0.0-0.7) Basophils # (Auto) 0.1 x10^3/uL (0.0-0.2) Sodium Level 137 mmol/L (136-145) Potassium Level 4.8 mmol/L (3.5-5.1) Chloride Level 100 mmol/L (98-107) Carbon Dioxide Level 31 mmol/L (21-32) Anion Gap 6 (6-14) Blood Urea Nitrogen 16 mg/dL (8-26) Creatinine 1.0 mg/dL (0.7-1.3) Estimated GFR (Cockcroft-Gault) 75.0 BUN/Creatinine Ratio 16 (6-20) Glucose Level 105 mg/dL (70-99) Calcium Level 9.3 mg/dL (8.5-10.1) Total Bilirubin 0.2 mg/dL (0.2-1.0) Aspartate Amino Transf (AST/SGOT) 20 U/L (15-37) Alanine Aminotransferase (ALT/SGPT) 19 U/L (16-63) Alkaline Phosphatase 83 U/L (46-116) Troponin I Quantitative < 0.017 ng/mL (0.000-0.055) RT-Ttk-I-Type Natriuretic Peptide 132 pg/mL (0-124) Total Protein 7.6 g/dL (6.4-8.2) Albumin 3.5 g/dL (3.4-5.0) Albumin/Globulin Ratio 0.9 (1.0-1.7) Urine Collection Type Unknown Urine Color Yellow Urine Clarity Cloudy Urine pH 6.5 Urine Specific [place] 1.010 Urine Protein Negative mg/dL (NEG-TRACE) Urine Glucose (UA) Negative mg/dL (NEG) Urine Ketones (Stick) Negative mg/dL (NEG) Urine Blood Negative (NEG) Urine Nitrite Negative (NEG) Urine Bilirubin Negative (NEG) Urine Urobilinogen Dipstick 0.2 mg/dL (0.2 mg/dL) Urine Leukocyte Esterase Negative (NEG) Urine RBC 0 /HPF (0-2) Urine WBC Occ /HPF (0-4) Urine Squamous Epithelial Cells Occ /LPF Urine Bacteria 0 /HPF (0-FEW) Glucose (Fingerstick) 153 mg/dL (70-99) Images Images CXR NORMAL Assessment/Plan Assessment/Plan ACUTE RESP FAILURE AECOPD TOBACCO DEPENDENCE PT JUST RECENTLY SWITCHED TO E CIG PLAN STEROIDS NEBS 02 AVOID TOBACCO NICOTINE REPLACEMENT WILL REVIEW MY OFFICE NOTES THANKS LEANNA SIDDIQUI MD Aug 25, 2016 18:20
[2016-08-25 19:00] VITALS: BP 165/92
[2016-08-25 23:00] VITALS: BP 178/99
--- NOTE | 2016-08-25 23:49 | ACF ---
Admission Forms Criteria COPD Clinical Indications for Admission to Inpatient Care (Place 'X' for any and all applicable criteria): Admission is indicated for ANY ONE of the following (1)(2)(3): [X]I. Acute exacerbation by high-risk comorbidity (e.g., pneumonia, dysrhythmia, heart failure, pleural effusion, pneumothorax) or severe underlying COPD (e.g., steroid dependent) [ ]II. Inpatient admission required rather than observation care (see Chronic Obstructive Pulmonary Disease: Observation Care) because of ANY ONE of the following: [ ]a) New or pre-existing signs or symptoms of COPD (eg, dyspnea or Tachypnea at rest or with minimal activity) that persist despite outpatient and observation care treatment [ ]b) New-onset hypoxemia (room air SaO2 less than 90%, PO2 less than 60 mm Hg (8.0 kPa)) that persists despite outpatient and observation care treatment [ ]c) Worsening of pre-existing hypoxemia (eg, new or increased requirement for supplemental oxygen to maintain oxygenation at baseline level) that persists despite outpatient and observation care treatment, with oxygen treatment needs performable only in acute inpatient setting [ ]d) Hypercarbia (PCO2 greater than 40 mm Hg (5.3 kPa))-induced respiratory acidosis (pH less than 7.35) that persists despite outpatient and observation care treatment [ ]e) Supplemental oxygen or respiratory treatments for over 24 hours that are performable only in acute inpatient setting [ ]f) Chest tube placement with active evacuation (e.g., suction, drainage) (5) [ ]g) Other condition, treatment or monitoring requiring inpatient admission [ ]III. Planned invasive surgical or diagnostic procedures requiring acute- care hospitalization [ ]IV. Acute respiratory failure (e.g., uncompensated hypercarbia, severe hypoxemia) [ ]V. Severe comorbid condition (e.g., severe steroid myopathy, acute vertebral fracture) that has acutely worsened pulmonary function [ ]. Confusion state, lethargy, obtundation, stupor or coma Extended stay beyond goal length of stay may be needed for (31)(32): [ ]a ) Respiratory Failure. [ ]b) Severe or persisting hypoxemia or hypercarbia [ ]c) Severe or persistent dyspnea [ ]d) Comorbidities (e.g. chronic heart failure, atrial fibrillation with rapid response, pneumonia) [ ]e) Malnutrition The original [facility] content created by [facility] has been revised. The portions of the content which have been revised are identified through the use of italic text or in bold, and [facility] has neither reviewed nor approved the modified material. All other unmodified content is copyright [facility]. Please see references footnoted in the original [facility] edition 2016 Admission Criteria Met?: Yes FADY LUTHER Aug 25, 2016 23:49
[2016-08-26 00:01] VITALS: BP 163/89
[2016-08-26 03:00] VITALS: BP 150/85
[2016-08-26 07:00] VITALS: BP 156/93
[2016-08-26] MEDS: IPRATRPIUM/ALBUTEROL 0.5/2.5MG 3 ML NEBU. NEB SCH ×3 (07:00→14:44)
[2016-08-26] MEDS: methylPREDNISolone SOD SUCC PF 40 MG/ML VIAL. IV SCH (08:36)
--- NOTE | 2016-08-26 08:48 | PDOC ---
GENERAL General: vss and afebrile. awake and alert. breathing much better and pushing for dc. told him we will have to see what pulmonary thinks when they see. much less wheezy today with improved air exchange. still on 4L/NC O2. Problems: VITAL SIGNS Vital Signs: Vital Signs Date Time Temp Pulse Resp B/P (MAP) Pulse Ox O2 Delivery O2 Flow Rate FiO2 08/26/16 07:00 Nasal Cannula 4.0 08/26/16 03:00 97.7 101 18 150/85 (106) 92 97.7 I & O I & O Intake and Output 08/26/16 07:00 Intake Total 700 ml Output Total 1800 ml Balance -1100 ml Intake Oral 400 ml IV Total 300 ml Output Urine Total 1800 ml ALLERGIES Allergies: Allergies Coded Allergies Type Severity Reaction Last Updated Verified povidone-iodine Allergy Intermediate 08/12/16 Yes MEDS Medications: Current Medications Medications (Trade) Dose Ordered Sig/Terri Start Time Stop Time Status Last Admin Dose Admin Albuterol Sulfate (Ventolin Neb Soln) 10 mg 1X ONCE 08/25/16 01:15 08/25/16 01:16 DC Albuterol/ Ipratropium (Duoneb) 3 ml RTQID 08/25/16 08:00 08/26/16 07:59 DC 08/26/16 07:00 3 ML Azithromycin 250 ml @ 250 mls/hr DAILY10 08/25/16 10:00 UNV Azithromycin 500 mg/Sodium Chloride 250 ml @ 250 mls/hr DAILY10 08/25/16 10:00 08/25/16 09:36 250 MLS/HR Ceftriaxone Sodium 1 gm/ Sodium Chloride 50 ml @ 100 mls/hr Q24H 08/25/16 09:00 08/26/16 08:35 100 MLS/HR Ipratropium [place] (Atrovent) 1.5 mg 1X ONCE 08/25/16 01:15 08/25/16 01:16 DC Methylprednisolone Sodium Succinate (SOLU-Medrol 40MG VIAL) 40 mg Q12HR 08/25/16 09:00 08/26/16 08:36 40 MG Methylprednisolone Sodium Succinate (SOLU-Medrol 125MG VIAL) 125 mg 1X ONCE 08/25/16 01:15 08/25/16 01:16 DC 08/25/16 01:51 125 MG Morphine Sulfate 2 mg PRN Q2HR PRN 08/25/16 04:00 08/26/16 03:59 DC Nitroglycerin (Nitrostat) 0.4 mg PRN Q5MIN PRN 08/25/16 04:00 08/26/16 03:59 DC Ondansetron HCl (Zofran) 4 mg PRN Q8HRS PRN 08/25/16 04:00 08/26/16 03:59 DC KISHAN OCHOA MD Aug 26, 2016 08:48
[2016-08-26] MEDS: AZITHROMYCIN 500 MG in IV NORMAL SALINE 250ML 250 ML IV SCH (09:23)
--- NOTE | 2016-08-26 10:57 | PDOC ---
PULMONARY PROGRESS NOTES Subjective PT WANTS TO GO HOME NOT MORE SOA Vitals Vital Signs Date Time Temp Pulse Resp B/P (MAP) Pulse Ox O2 Delivery O2 Flow Rate FiO2 08/26/16 10:48 Nasal Cannula 4.0 08/26/16 07:00 97.5 86 20 156/93 (114) 91 97.5 ROS: No Nausea, No Chest Pain, No Abdominal Pain, No Increase Cough General: Alert Lungs: Wheezing (MUCH IMPROVED) Cardiovascular: S1, S2 Abdomen: Soft Neuro Exam: Alert Extremities: No Edema Skin: Warm Labs Laboratory Tests Test 08/25/16 01:01 08/25/16 02:30 08/25/16 06:50 White Blood Count 8.0 x10^3/uL (4.0-11.0) Red Blood Count 4.69 x10^6/uL (4.30-5.70) Hemoglobin 14.5 g/dL (13.0-17.5) Hematocrit 43.1 % (39.0-53.0) Mean Corpuscular Volume 92 fL (79-100) Mean Corpuscular Hemoglobin 31 pg (25-35) Mean Corpuscular Hemoglobin Concent 34 g/dL (31-37) Red Cell Distribution Width 14.2 % (11.5-14.5) Platelet Count 223 x10^3/uL (140-400) Neutrophils (%) (Auto) 69 % (31-73) Lymphocytes (%) (Auto) 18 % (24-48) Monocytes (%) (Auto) 8 % (0-9) Eosinophils (%) (Auto) 5 % (0-3) Basophils (%) (Auto) 1 % (0-3) Neutrophils # (Auto) 5.5 x10^3uL (1.8-7.7) Lymphocytes # (Auto) 1.4 x10^3/uL (1.0-4.8) Monocytes # (Auto) 0.6 x10^3/uL (0.0-1.1) Eosinophils # (Auto) 0.4 x10^3/uL (0.0-0.7) Basophils # (Auto) 0.1 x10^3/uL (0.0-0.2) Sodium Level 137 mmol/L (136-145) Potassium Level 4.8 mmol/L (3.5-5.1) Chloride Level 100 mmol/L (98-107) Carbon Dioxide Level 31 mmol/L (21-32) Anion Gap 6 (6-14) Blood Urea Nitrogen 16 mg/dL (8-26) Creatinine 1.0 mg/dL (0.7-1.3) Estimated GFR (Cockcroft-Gault) 75.0 BUN/Creatinine Ratio 16 (6-20) Glucose Level 105 mg/dL (70-99) Calcium Level 9.3 mg/dL (8.5-10.1) Total Bilirubin 0.2 mg/dL (0.2-1.0) Aspartate Amino Transf (AST/SGOT) 20 U/L (15-37) Alanine Aminotransferase (ALT/SGPT) 19 U/L (16-63) Alkaline Phosphatase 83 U/L (46-116) Troponin I Quantitative < 0.017 ng/mL (0.000-0.055) KH-Iac-L-Type Natriuretic Peptide 132 pg/mL (0-124) Total Protein 7.6 g/dL (6.4-8.2) Albumin 3.5 g/dL (3.4-5.0) Albumin/Globulin Ratio 0.9 (1.0-1.7) Urine Collection Type Unknown Urine Color Yellow Urine Clarity Cloudy Urine pH 6.5 Urine Specific [place] 1.010 Urine Protein Negative mg/dL (NEG-TRACE) Urine Glucose (UA) Negative mg/dL (NEG) Urine Ketones (Stick) Negative mg/dL (NEG) Urine Blood Negative (NEG) Urine Nitrite Negative (NEG) Urine Bilirubin Negative (NEG) Urine Urobilinogen Dipstick 0.2 mg/dL (0.2 mg/dL) Urine Leukocyte Esterase Negative (NEG) Urine RBC 0 /HPF (0-2) Urine WBC Occ /HPF (0-4) Urine Squamous Epithelial Cells Occ /LPF Urine Bacteria 0 /HPF (0-FEW) Glucose (Fingerstick) 153 mg/dL (70-99) Medications Active Scripts Medications Dose Route/Sig Max Daily Dose Days Date Category Zofran Odt (Ondansetron) 4 Mg Tab.rapdis 1 Tab SL Q8HRS 07/22/16 Reported Proair Hfa Inhaler (Albuterol Sulfate) 8.5 Gm Hfa.aer.ad 2 Puff IH PRN Q4-6HRS PRN 03/02/15 Reported Albuterol Sulfate Conc Neb Soln (Albuterol Sulfate) 2.5 Mg/0.5 Ml Vial.neb 1 Vial NEB Q6HRS PRN 03/02/15 Reported Impression . ACUTE RESP FAILURE AECOPD TOBACCO DEPENDENCE PT JUST RECENTLY SWITCHED TO E CIG ABNORMAL CT IN PAST S/P BRONCH NEGATIVE CYTOLOGY PULMONARY NODULES Plan . D/C HOME NEEDS 02 RX WRITTEN OUTPT PET FOLLOW UP ON OCT 28 AVOID TOBACCO RX FOR PRED LEANNA SIDDIQUI MD Aug 26, 2016 10:57
[2016-08-26 11:00] VITALS: BP 161/98
[2016-08-26 15:00] VITALS: BP 161/89
--- NOTE | 2016-08-26 21:02 | PDOC3 ---
Discharge Summary* Date of Admission: Aug 25, 2016 Date of Discharge: Aug 26, 2016 Admitting Diagnosis Problems Medical Problems: (1) Respiratory failure Status: Acute Problems: (1) COPD exacerbation (2) Bronchitis Final Diagnosis Problems Medical Problems: (1) Respiratory failure Status: Acute exacerbation of copd,hypoxia CONSULTS pulmonary. Brief Hospital Course Mr. Santacruz is a 65 old male who presented with sob and cough for 2 months with acute worsening on day of admission. was found to have acute respiratory failure due to exacerbation of copd with bronchitis and admitted through ER. Disposition/Orders: D/C to Home CONDITION AT DISCHARGE: Improved Diet: Regular Scheduled Ondansetron (Zofran Odt), 1 TAB SL Q8HRS, (Reported) Scheduled PRN Albuterol Sulfate (Albuterol Sulfate Conc Neb Soln), 1 VIAL NEB Q6HRS PRN for SHORTNESS OF BREATH, (Reported) Albuterol Sulfate (Proair Hfa Inhaler), 2 PUFF IH PRN Q4-6HRS PRN for SHORTNESS OF BREATH, (Reported) FOLLOW UP APPOINTMENT: one week PCP add prednisone taper per pulmonary to home med regimen. Time Spent Total time spent with patient [] minutes for coordination of care, counseling, and education. KISHAN OCHOA MD Aug 26, 2016 21:02
== END 2016-08-26 16:30 | disposition home or self-care (01) | DRG 189 ==
LOC: ER 00:48 → 5 NORTH 02:00
PROVIDERS: ADMIT Family Medicine; ATTEND Family Medicine
DX: J96.01 Acute respiratory failure with hypoxia (principal); J44.1 Chronic obstructive pulmonary disease with (acute) exacerbation; E78.00 Pure hypercholesterolemia, unspecified; F17.290 Nicotine dependence, other tobacco product, uncomplicated; Z90.49 Acquired absence of other specified parts of digestive tract; Z79.899 Other long term (current) drug therapy; Z88.8 Allergy status to other drugs, medicaments and biological substances
CPT/HCPCS: 36415; 71010; 80053; 81001; 82962; 83880; 84484; 85027; 87070; 87205; 93005; 94250; 94620; 94640; 94644; 94760; 96374; 99406; J0456; J0696; J2920; J2930; J7050; J7620; 99285-25; J7030

== ENCOUNTER → 2016-09-03 | Outpatient (CLI) | payer MEDICARE ==
[2016-08-26 11:00] VITALS: BP_SYST 161
[2016-08-26 15:00] VITALS: BP_DIAS 89
--- NOTE | 2016-09-04 10:31 | RAD ---
EXAM: PET/CT SKULL BASE TO MID THIGH. HISTORY: Lung carcinoma. COMPARISON: CT chest 07/23/2016.. TECHNIQUE: CT was performed from the skull base through the mid thighs for the purposes of attenuation correction. 14.7 mCi F-18 fluorodeoxyglucose (FDG) was administered intravenously. After an uptake period, positron emission tomography was performed from the skull base through the mid thighs. The PET and CT data were fused and interpreted in combination a dedicated workstation. Blood glucose level was 109 mg/dL at the time of FDG administration. Findings: Head and neck: No suspicious hypermetabolic mass or lymphadenopathy. Chest: There is moderate upper lobe predominant centrilobular emphysema. Anterior right apical regular consolidation and associated bronchiectasis measuring 3.0 x 1.7 cm with a maximum SUV of 2.7. This is contiguous with more posterior right apical consolidation measuring 2.4 x 1.9 cm with a maximum SUV of 2.4. There is posterior right upper lobe subpleural nodule measuring 1.2 x 0.9 cm with maximum SUV of 1.9. There is a 5 mm noncalcified nodule in the right lower lobe at the lung base with no significant FDG uptake and may be too small to resolve. There is patchy consolidation in the left lung apex measuring 1.7 x 1.6 cm with a maximum SUV of 2.0. There is left hilar hypermetabolic lymphadenopathy measuring 3.4 maximum SUV. There is a mildly enlarged subcarinal lymph node with FDG uptake with a maximal SUV of 3.4. No hypermetabolic axillary right hilar lymphadenopathy. Abdomen and pelvis: There is physiologic activity and kidneys and renal collecting system. No hypermetabolic adrenal lesion. No suspicious hypermetabolic mass or lymphadenopathy in this region. Musculoskeletal: No suspicious focal hypermetabolic activity. Uncorrected PET images: No additional finding. Low-dose noncontrast CT: Three-vessel coronary artery calcifications. Calcified pleural plaques. Abdominal aorta is normal in caliber with moderate aortoiliac calcified atheromatous disease. Impression: 1. Patchy biapical irregular consolidation in both lungs a demonstrating low level FDG uptake which and 5 mm pulmonary nodule in the right lower lobe which is too small to resolve by PET, may represent chronic inflammation/fibrosis though underlying malignancy cannot be definitively excluded. 2. Mild subcarinal and left hilar hypermetabolic lymphadenopathy, indeterminate between keyur metastatic disease or reactive. 3. No hypermetabolic lymphadenopathy in the neck, abdomen, or pelvis. If malignancy is not confirmed, follow-up noncontrast CT chest in 3 months is recommended to assess for stability.
== END | disposition home or self-care (01) ==
LOC: PETSC 08:18
PROVIDERS: ATTEND Internal Medicine Pulmonary Disease
DX: R91.1 Solitary pulmonary nodule (principal)
CPT/HCPCS: 78815; A9552

== ENCOUNTER → 2016-11-10 | Outpatient (CLI) | payer MEDICARE ==
--- NOTE | 2016-11-10 09:45 | RAD ---
Right upper quadrant abdominal ultrasound, 11/10/2016: History: Bloating, right upper quadrant pain The gallbladder is within normal limits in size. There is no sonographic evidence of cholelithiasis. The gallbladder patel are not thickened. No bile duct dilatation is seen. The visualized portions of the liver, pancreas and right kidney are unremarkable. IMPRESSION: No significant abnormality is detected.
[2016-11-10] MEDS: SINCALIDE 1.4 MCG in IV NORMAL SALINE 50ML 30 ML IV ONE (11:06)
--- NOTE | 2016-11-10 13:06 | RAD ---
Radionuclide hepatobiliary scan with gallbladder ejection fraction, 11/10/2016: History: Abdominal pain Following IV injection of 5.5 mCi of technetium 99m Choletec there was prompt uptake of the radionuclide from the blood stream by the liver. Activity is present in the bile ducts and small bowel at 20 minutes. Gallbladder activity developed at 30 minutes. Additional imaging of the gallbladder was performed following IV injection of 1.4 mcg of cholecystokinin. The gallbladder ejection fraction was calculated at 86%. IMPRESSION: 1. Normal radionuclide hepatobiliary scan. 2. The gallbladder ejection fraction is 86%.
== END | disposition home or self-care (01) ==
LOC: US 07:52
PROVIDERS: ATTEND Internal Medicine Gastroenterology
DX: R10.11 Right upper quadrant pain (principal); R14.0 Abdominal distension (gaseous); J44.9 Chronic obstructive pulmonary disease, unspecified; Z87.891 Personal history of nicotine dependence
CPT/HCPCS: 76705; 78226; 96374; 96375; A9537; J2805

== ENCOUNTER → 2016-11-12 | Outpatient (CLI) | payer MEDICARE, OTHER ==
--- NOTE | 2016-11-12 10:04 | RAD ---
Radionuclide gastric emptying study, 11/12/2016: History: Full feeling after eating Study was performed utilizing a solid test meal radiolabeled with 2.1 mCi of technetium 99m sulfur colloid. The time to half emptying of the test meal from the patient's stomach was estimated at 88 minutes. A normal T1/2 is 60 minutes +/- 30 minutes. IMPRESSION: Normal gastric emptying time.
== END | disposition home or self-care (01) ==
LOC: NM 07:55
PROVIDERS: ATTEND Internal Medicine Gastroenterology
DX: R14.0 Abdominal distension (gaseous) (principal)
CPT/HCPCS: 78264; A9541

== ENCOUNTER → 2016-12-17 | Outpatient (CLI) | payer MEDICARE, OTHER ==
[~2016-12-17] MED LIST changes: +IOHEXOL 300 MG/ML 100ML VIAL. IV ONE
[2016-12-17 15:20] LABS: CREATININE 1.2 mg/dL (0.7-1.3); GFR 60.6
--- NOTE | 2016-12-17 16:41 | RAD ---
EXAM: CT OF THE CHEST WITH INTRAVENOUS CONTRAST. HISTORY: Shortness of breath, cough. TECHNIQUE: Computed tomography of the chest was performed after the intravenous administration of 75 mL Omnipaque 300. COMPARISON: 07/23/2016. FINDINGS: Images of the upper abdomen reveal no acute abnormality. Bone windows reveal no suspicious lesions. There are no pathologically enlarged mediastinal or axillary lymph nodes. Calcified mediastinal lymph nodes are likely secondary to old granulomatous disease. There is no pleural or pericardial effusion. Bilateral calcified pleural plaques are consistent with metastases exposure. There are no soft tissue density pleural masses. The heart is not enlarged. Centrilobular and paraseptal emphysema is moderate in the apices. Scarlike regions of consolidation in both apices are unchanged. A more nodular region of scarring posteriorly in the right upper lobe on image 20 measures 13 x 10 mm and is stable. Lesser scarring is noted in the bases. Some groundglass opacity in the right costophrenic angle is increased. Bronchial wall thickening indicates a component of chronic bronchitis. A calcified granuloma is noted on the right. IMPRESSION: 1. Moderate centrilobular and paraseptal emphysema. 2. A mild groundglass opacity in the right costophrenic angle may be atelectasis or mild acute infiltrate. Correlate for evidence of infection. 3. Regions of nodular scarring in the apices are unchanged and were negative on prior PET. These are likely postinflammatory. 4. Changes of prior asbestos exposure with calcified pleural plaques and subpleural scarring. *One or more of the following individualized dose reduction techniques were utilized for this examination: 1. Automated exposure control. 2. Adjustment of the mA and/or kV according to patient size. 3. Use of iterative reconstruction technique.
== END | disposition home or self-care (01) ==
LOC: CT 15:01
PROVIDERS: ATTEND Internal Medicine Pulmonary Disease
DX: J43.9 Emphysema, unspecified (principal); R91.8 Other nonspecific abnormal finding of lung field
CPT/HCPCS: 36415; 71260; 82565; 84520